=== PATIENT | female | born 1965 | race Caucasian/White ===

== ENCOUNTER 2021-12-24 06:12 | Inpatient (IN) ==
--- NOTE | 2021-12-10 13:25 | PAT Medication Instructions ---
Medication Instructions Date of Service December 10, 2021 Home Medications Tumeric Root 1,000 mg PO QAM alirocumab 150 mg/mL subcutaneous pen injector (Praluent Pen) 150 mg subcut UD gabapentin 800 mg tablet (Neurontin) 800 mg PO BID glipizide 10 mg tablet 10 mg PO QAM ketorolac 10 mg tablet 10 mg PO BID PRN Pain melatonin 12 mg tablet 25 mg PO HS PRN Sleep meloxicam 15 mg tablet 15 mg PO QAM metformin 1,000 mg tablet 1,000 mg PO BID tizanidine 4 mg tablet 4 mg PO TID PRN Muscle Spasm ASK your surgeon for instructions meloxicam 15 mg tablet 15 mg PO QAM ketorolac 10 mg tablet 10 mg PO BID PRN Pain ASK your prescriber and surgeon alirocumab 150 mg/mL subcutaneous pen injector (Praluent Pen) 150 mg subcut UD STOP taking 2 weeks before surgery (or as soon as possible if surgery is within 2 weeks) Tumeric Root 1,000 mg PO QAM DO NOT take the morning of surgery glipizide 10 mg tablet 10 mg PO QAM metformin 1,000 mg tablet 1,000 mg PO BID tizanidine 4 mg tablet 4 mg PO TID PRN Muscle Spasm Take morning of surgery With a small sip of water, OTHERWISE NOTHING TO EAT OR DRINK AFTER MIDNIGHT: gabapentin 800 mg tablet (Neurontin) 800 mg PO BID Take evening before surgery gabapentin 800 mg tablet (Neurontin) 800 mg PO BID melatonin 12 mg tablet 25 mg PO HS PRN Sleep (if needed) metformin 1,000 mg tablet 1,000 mg PO BID tizanidine 4 mg tablet 4 mg PO TID PRN Muscle Spasm (if needed) Other Notes If you have any questions please call us at [phone] or [phone] or [phone] or [phone]
--- NOTE | 2021-12-11 15:41 | Anesthesiology Consultation ---
Date of Service December 11, 2021 Assessment & Plan (1) Encounter for pre-operative examination: - Possible difficult intubation: Based on anatomy/decreased cervical extension/hx jaw atrophy r/t TMJ per pt. Received oral & maxillofacial radiologist note (02/16/2017): "Airwaynasal septal deviation was noted.. The space posterior to the tongue and soft palate was reduced (approximately 29 mm).. This space is small and should be considered a high risk factor for obstructive sleep apnea.. When the mandible was in "closed" position the condyles were positioned slightly anterior to the center in their respective fossa. The posterior articular spaces were augmented and the superior articular spaces were reduced.. Suggestive evidence of bilateral molar class II relationships were observed.. TMJs.. 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 The presence of these changes increases the probability of displaced discs for the TMJs. Reduction of condylar size maybe associated with changes in occlusion, asymmetries and mandibular posture which may predispose to TMJ dysfunction." Attempts to obtain most recent intubations (lumbar/cervical fusion records from 2006) unsuccessful. Case reviewed with Dr. Paulino. Nothing further preoperatively from his p erspective. Patient possible difficult intubation. - COVID screening: Per assessment on 12/11: No known COVID-19 positive contacts or current COVID-19 related symptoms. Travel screen negative. Surgeon arranging preop COVID testing. Awaiting results. - Check test, BSG AM DOS Chart Review Chart Review: Acceptable Risk for Surgery and Patient seen in Pre Admission Testing Teaching & Discussion Pre-Anesthesia Teaching/Discussion Notes: Instructed NPO after midnight before surgery,except medications with 15 cc of water. Medication instructions provided according to the PAT guidelines. History Surgery Operation Date: 12/24/21 07:45 Proposed Procedures p C4-C6 Anterior Cervical Discectomy Fusion, Spinal Cord Monitoring - Damian Mak DO Height/Weight Height: 5 ft 4 in Weight: 80.3 kg Allergies Allergy/AdvReac Type Severity Reaction Status Date / Time exenatide [From Byetta] Allergy Severe Anaphylaxis Verified 12/10/21 09:46 Sulfa (Sulfonamide Allergy Severe Hives Verified 12/10/21 09:46 Antibiotics) latex Allergy Intermediate Rash Verified 12/10/21 10:21 nickel Allergy Unknown Rash Verified 12/10/21 10:21 artificial sweetners AdvReac Unknown Nausea Uncoded 12/10/21 09:46 Medications Home Medications Medication Instructions Recorded Confirmed Last Taken Tumeric Root 1,000 mg PO QAM 12/10/21 12/10/21 Unknown alirocumab 150 mg/mL subcutaneous 150 mg subcut UD 12/10/21 12/10/21 Unknown pen injector (Praluent Pen) gabapentin 800 mg tablet 800 mg PO BID 12/10/21 12/10/21 Unknown (Neurontin) glipizide 10 mg tablet 10 mg PO QAM 12/10/21 12/10/21 Unknown ketorolac 10 mg tablet 10 mg PO BID PRN Pain 12/10/21 12/10/21 Unknown melatonin 12 mg tablet 25 mg PO HS PRN Sleep 12/10/21 12/10/21 Unknown meloxicam 15 mg tablet 15 mg PO QAM 12/10/21 12/10/21 Unknown metformin 1,000 mg tablet 1,000 mg PO BID 12/10/21 12/10/21 Unknown tizanidine 4 mg tablet 4 mg PO TID PRN Muscle Spasm 12/10/21 12/10/21 Unknown Past Medical History Medical History Diabetes High triglycerides Jaw atrophy Left side "deterioration" [place] r/t TMJ complications Sleep apnea CPAP (Compliant) Exercise / Class Metabolic Activity II 4-5 Yardwork/Stairs/Walk up hill (one FS (no CP, no SOB)) Past Surgical History Surgical History H/O colonoscopy H/O esophagogastroduodenoscopy "Narrow esophagus" Hx of prior ablation treatment uterine ablation S/P carpal tunnel release b/l S/P cervical spinal fusion C6-C7 (2006) S/P section S/P knee surgery lateral release S/P lumbar fusion L4-5 (2006) S/P right oophorectomy S/P trigger finger release 1st finger right hand Past Anesthesia History No Hx of Anesthesia Complications and No Family Hx of Anesthesia Complications History of PONV No Hx of PONV and No Hx of Motion Sickness Social History tobacco type: cigarettes Smoking cigarettes per day: 20 cigs/day Do You Dip or Chew Tobacco: No Hx Alcohol Use: No Hx Substance Use: No substance use type: does not use Review of Systems Patient denies chest pain, shortness of breath, dyspnea on exertion, fever, chills, cough, wheezing, palpitations. Physical Exam Vital Signs VITALS BP 111/73 P 76 TEMP 98.6 SP02 95%RA RESP 16 PHYSICAL Significantly decreased cervical extension range of motion. Full TMJ range of motion. TMD 3 finger breaths Mallampati Score 4 (small oral opening) Dentition: intact Lungs: clear throughout to auscultation Cardiac: regular rate and rhythm, I/ systolic murmur Spine: normal Carotid arteries: negative bruit Extremities: no edema Lab Results Anesthesia Preop Results Results Anesthesia Widget: WBC 12.36 K/ul (4.8-10.8) H 12/11/21 Hgb 14.6 g/dl (12.0-16.0) 12/11/21 Hct 43.6 % (34.1-44.9) 12/11/21 Plt 237 K/uL (130-400) 12/11/21 Na 141 mmol/L (136-145) 12/11/21 K 4.1 mmol/L (3.5-5.1) 12/11/21 Cl 106 mmol/L (98-107) 12/11/21 CO2 28 mmol/L (21-32) 12/11/21 BUN 16 mg/dl (6-23) 12/11/21 Creat 0.88 mg/dl (0.6-1.2) 12/11/21 Glucose Level 105 mg/dl (70-99(Fasting)) H 12/11/21 PT 10.3 Seconds (9.0-12.0) 12/11/21 PTT 26.4 Seconds (21.0-31.0) 12/11/21 INR 1.0 (0.9-1.1) 12/11/21 Urine Color Yellow 12/11/21 Urine Appearance Clear (Clear) 12/11/21 Urine pH 5.5 (4.5-7.5) 12/11/21 Urine Specific [place] 1.035 (1.000-1.030) H 12/11/21 Urine Protein Negative (Negative) 12/11/21 Urine Glucose (UA) 3+ (Negative) H 12/11/21 Urine Ketones Trace (Negative) H 12/11/21 Urine Blood Negative (Negative) 12/11/21 Urine Nitrite Negative (Negative) 12/11/21 Urine Bilirubin Negative (Negative) 12/11/21 Urine Urobilinogen Negative (Negative) 12/11/21 Urine Leukocyte Esterase Negative (Negative) 12/11/21 Blood Type O Positive 12/11/21 Antibody Screen NEGATIVE 12/11/21 Testing Laboratory Results Elevated WBC > will forward preop testing to PCP for continuity of care* 11/03/21 HGBA1C 6.5% Electrocardiogram Date: 12/11/21 Findings: + NSR @ (64) Chest X-Ray Date: 12/11/21 FINDINGS: Frontal and lateral radiographs of the chest demonstrate the cardiomediastinal silhouette to be within normal limits. The lungs are clear of alveolar opacities. There is no evidence for effusion bilaterally. There is no evidence for vascular congestion. There is no acute osseous pathology. IMPRESSION: No acute cardiopulmonary disease.
[~2021-12-24 06:12] MED LIST: ACETAMINOPHEN 500 MG TAB PO SCH; CeleBREX 200 MG CAP PO SCH; GABAPENTIN 600 MG DOSE PO SCH; LR 15ML/HR IV SCH; ceFAZolin 2000MG 2,000 MG/15 ML SYR IV SCH
[2021-12-24] MEDS ORDERED: PROPOFOL IV EMULSION 10 MG/ML 20 ML VIAL IV ONE ×2 (07:20→08:43)
[2021-12-24] MEDS ORDERED: ceFAZolin 330 MG/ML 1 GM VIAL ONE (07:21)
[2021-12-24] MEDS ORDERED: LIDOCAINE 2% MPF LOCAL 5 ML VIAL INFIL ONE ×2 (07:22→09:13)
[2021-12-24] MEDS ORDERED: fentaNYL citrate 100 MCG/2 ML VIAL ONE (07:23)
[2021-12-24] MEDS ORDERED: MIDAZOLAM HCL 1 MG/ML 2ML VIAL ONE (07:23)
[2021-12-24] MEDS ORDERED: SUCCINYLCHOLINE CHLORIDE 20 MG/ML 10 ML VIAL IV ONE (07:24)
[2021-12-24] MEDS ORDERED: ROCURONIUM BROMIDE 10 MG/ML 5 ML VIAL IV ONE ×6 (07:24→08:37)
[2021-12-24] MEDS ORDERED: ONDANSETRON INJ 2 MG/ML 2 ML VIAL ONE (07:25)
[2021-12-24] MEDS ORDERED: ARTIFICIAL TEARS OP OINT 3.5 GM TUBE ONE (07:33)
[2021-12-24 07:37] LABS: Pregnancy Test, Serum Negative (Negative)
--- NOTE | 2021-12-24 07:39 | History & Physical Bridge Note ---
Date of Service December 24, 2021 History & Physical Bridge Note I have examined the patient, reviewed the History & Physical and in the interval since the performance of the History & Physical I have noted the following changes of clinical significance: no changes noted
--- NOTE | 2021-12-24 07:41 | History & Physical Report ---
Date of Service December 24, 2021 Assessment & Plan (1) Cervical stenosis of spinal canal: Plan: C4-C6 anterior cervical discectomy and fusion History of Present Illness Chief Complaint: Neck and arm pain Primary Care Provider: Meghann Mcbride MD This is a 56-year-old female presents with chronic persistent neck and arm pain after failing course of nonoperative care she is here for surgical invention. Allergies Allergy/AdvReac Type Severity Reaction Status Date / Time exenatide [From Byetta] Allergy Severe Anaphylaxis Verified 12/24/21 06:44 Sulfa (Sulfonamide Allergy Severe Hives Verified 12/24/21 06:44 Antibiotics) latex Allergy Intermediate Rash Verified 12/24/21 06:44 nickel Allergy Unknown Rash Verified 12/24/21 06:44 artificial sweetners AdvReac Unknown Nausea Uncoded 12/24/21 06:44 Home Medications Medication Instructions Recorded Confirmed Type Tumeric Root 1,000 mg PO QAM 12/10/21 12/24/21 History alirocumab 150 mg/mL subcutaneous 150 mg subcut UD 12/10/21 12/24/21 History pen injector (Praluent Pen) gabapentin 800 mg tablet 800 mg PO BID 12/10/21 12/24/21 History (Neurontin) glipizide 10 mg tablet 10 mg PO QAM 12/10/21 12/24/21 History ketorolac 10 mg tablet 10 mg PO BID PRN Pain 12/10/21 12/24/21 History melatonin 12 mg tablet 25 mg PO HS PRN Sleep 12/10/21 12/24/21 History meloxicam 15 mg tablet 15 mg PO QAM 12/10/21 12/24/21 History metformin 1,000 mg tablet 1,000 mg PO BID 12/10/21 12/24/21 History tizanidine 4 mg tablet 4 mg PO TID PRN Muscle Spasm 12/10/21 12/24/21 History Past Med/Surg History Medical History Diabetes High triglycerides Jaw atrophy Left side "deterioration" [place] r/t TMJ complications Sleep apnea CPAP (Compliant) Surgical History H/O colonoscopy H/O esophagogastroduodenoscopy "Narrow esophagus" Hx of prior ablation treatment uterine ablation S/P carpal tunnel release b/l S/P cervical spinal fusion C6-C7 (2006) S/P section S/P knee surgery lateral release S/P lumbar fusion L4-5 (2006) S/P right oophorectomy S/P trigger finger release 1st finger right hand Social History Smoking Status: Never smoker Cigarettes Per Day: 20 cigs/day; Second Hand Exposure: No; Do You Dip or Chew Tobacco: No; Tobacco Cessation Education Requested by Patient: No Hx Alcohol Use: No Hx Substance Use: No Preferred Language: Peruvian Communication Ability: Effective Articulation Officer Required: No Beliefs That Will Affect Care: None Current Living Situation: Significant Other Other Information That Helps Us Care for You: No Feels Safe at Home: Yes Safety Concerns: Feels Safe At This Time Assistive Devices: CPAP and Glasses Physical Exam Physical Exam: Patient is alert and oriented Heart regular rhythm Lungs clear Results & Data Results & Data ([facility]) Vital Signs (Past 12 Hours) Vital Signs Temp Pulse Resp BP Pulse Ox O2 Del Method 12/24/21 06:55 36.4 C L 72 18 128/83 96 Room Air
[2021-12-24] MEDS ORDERED: PROMETHAZINE HCL 12.5 MG in SODIUM CHLORIDE 0.9% 50 ML IV PRN ×2 (07:42→12:12)
[2021-12-24] MEDS ORDERED: ATROPINE SULFATE 0.1 MG/ML 10ML SYR IV PRN (07:42)
[2021-12-24] MEDS ORDERED: ePHEDrine sulfate 50 MG/ML AMP IV PRN (07:42)
[2021-12-24] MEDS ORDERED: ONDANSETRON INJ 2 MG/ML 2 ML VIAL IV PRN ×2 (07:42→12:12)
[2021-12-24] MEDS ORDERED: HYDROmorphone INJ 2 MG/ML SYR/VIAL ONE (08:45)
[2021-12-24] MEDS ORDERED: GLYCOPYRROLATE 0.2 MG/ML VIAL ONE ×2 (09:00)
[2021-12-24] MEDS ORDERED: FLOSEAL HEMOSTATIC MATRIX 10ML TOP ONE (09:03)
--- NOTE | 2021-12-24 09:13 | Operative Report ---
Post Operative Report Pre & Post Diagnosis Operation Date: 12/24/21 07:45 Pre-Op Diagnosis: Spinal stenosis with radiculopathy Post-Op Diagnosis: Same I identified the patient and participated in the time-out.: Yes Procedure Operation Date: 12/24/21 07:45 Actual Procedures #1 anterior cervical discectomy with bilateral foraminotomies C4-C5. #2 anterior cervical arthrodesis C4-C5. #3 placement of 8 mm coalition cage filled with I factor C4-C5. Surgeon Damian Mak, Java Software Developer Krystina Jc Estimated Blood Loss 10 Findings Consistent with Post-Op Diagnosis Specimens None Indications This is a 56-year-old female who presents with above-mentioned diagnosis after failed course of nonoperative care she is here for surgical invention. Description of Procedure Patient was met with identified informed consent obtained. Patient was then taken to the operative suite underwent ablation placed in supine position the [place] table at [place] head animal keeper. All bony prominences well-padded eyes inspected to ensure no external pressure placed upon them. This point the anterior cervical spine was prepped and draped in the normal sterile fashion. With the assistance of fluoroscopy identify the C5 vertebral body and a transverse incision was placed along the right anterior aspect of the cervical spine overlying this region. Blunt dissection with the assistance of bipolar electrocautery was then performed down to and exposing the anterior cervical spine at C4-5 C5-C6. Then performed a complete discectomy of C4-C5 out to the uncovertebral joints bilaterally. [place] distraction pins were utilized to assist in visualization. I then removed all posterior annular fibers longitudinal ligament performed bilateral foraminotomies. Endplates were then burred to subcortically bone and an 8 mm coalition cage filled with I factor tapped in position and screwed into place with fluoroscopic assistance. I then explored the C5-C6 disc base. I appreciated dramatic bony overgrowth and a solid level. It is gone on to autofusion most likely from the previous C6-C7 surgery. Subsequently I chose not to address this level surgically. The incision was then copiously irrigated explored to ensure no damage to surrounding structures remaining bleeding. 10 round JUANCARLOS drain inserted. The incision was then closed with 2 Vicryl in a fashion of 4 Monocryl for final skin closure. Steri-Strip sterile dressings placed. Patient waken taken PACU stable condition. Please note spinal cord monitoring was utilized at the procedure no changes noted. Lastly Krystina Hosea was present out the entire procedure involved the patient positioning complex portions of the surgery and final skin closure. I attest to the content of the Intraoperative Record and any orders documented therein. Any exceptions are noted below.
[2021-12-24] MEDS: fentaNYL citrate 100 MCG/2 ML VIAL IV PRN ×2 (10:22→11:05)
--- NOTE | 2021-12-24 11:48 | Fluoroscopy Report ---
FL cervical 2-3V CLINICAL HISTORY: ACDF C4-C6 TECHNIQUE: 2 views were obtained with the C-arm in the OR with the above procedure. Total fluoroscopy time was 1.8 seconds. Total skin dose was 2.55 mGy. Comparison: None available at the time of this dictation. FINDINGS/IMPRESSION: Intraoperative images were obtained of ACDF of C4-C5. Please correlate with intraoperative fluoroscopy and operative report. ACT 112: Negative or not required by law. Electronically signed by: Alhaji Floyd M.D. 12/24/2021 11:46 AM
[2021-12-24] MEDS: HYDROmorphone INJ 2 MG/ML SYR/VIAL IV PRN ×2 (11:51→13:07)
[2021-12-24] MEDS ORDERED: ACETAMINOPHEN 1,000 MG/100 ML VIAL IV PRN (12:12)
[2021-12-24] MEDS ORDERED: LORazepam 0.5 MG TAB PO PRN (12:12)
[2021-12-24] MEDS ORDERED: NALOXONE HCL 0.4 MG/1 ML VIAL/CARP IV PRN (12:12)
[2021-12-24] MEDS ORDERED: ALUMINUM/MAGNESIUM SUSP 30 ML UDC PO PRN (12:12)
[2021-12-24] MEDS ORDERED: ONDANSETRON 4 MG OD TAB PO PRN (12:12)
[2021-12-24] MEDS ORDERED: LORazepam 0.5 MG in SYRINGE 0.25 ML IV PRN (12:12)
[2021-12-24] MEDS ORDERED: dexAMETHasone 8 MG in SYRINGE 0 ML IV PRN (12:12)
[2021-12-24] MEDS ORDERED: hydrOXYzine HCl 25 MG TAB PO PRN (12:12)
[2021-12-24] MEDS ORDERED: bisacodyL 10 MG SUPP PR PRN (12:12)
[2021-12-24] MEDS ORDERED: SOD PHOSPHATE/SOD BIPHOSPHATE ENEMA 132 ML BTL PR PRN (12:12)
[2021-12-24] MEDS ORDERED: FAMOTIDINE 20 MG TAB PO PRN (12:12)
[2021-12-24] MEDS ORDERED: METOCLOPRAMIDE HCL INJ 5 MG/ML 2 ML VIAL IV PRN (12:12)
[2021-12-24] MEDS ORDERED: RACEPINEPHRINE 2.25% NEBU SOLN 0.5 ML VIAL INH PRN (12:12)
[2021-12-24] MEDS ORDERED: MAGNESIUM HYDROXIDE SUSP 30 ML UDC PO PRN (12:12)
[2021-12-24] MEDS ORDERED: HYDROmorphone INJ 0.5 MG/0.5 ML SYR IV PRN (12:12)
[2021-12-24] MEDS ORDERED: tiZANidine HCL 4 MG TABLET PO PRN (12:12)
--- NOTE | 2021-12-24 12:15 | Anesthesiology Progress Note ---
Date of Service December 24, 2021 Anesthesia Post Procedure Vital Signs Vital Signs: Temp Pulse Pulse Resp BP Pulse Ox O2 Del Method 12/24/21 12:05 55 L 12 116/60 96 Oxymask 12/24/21 11:55 66 18 135/83 97 Room Air 12/24/21 11:45 58 L 15 130/67 96 Room Air 12/24/21 11:35 60 12 138/68 98 Oxymask 12/24/21 11:25 55 L 16 127/76 95 Oxymask 12/24/21 11:15 58 L 11 L 137/78 99 Oxymask 12/24/21 11:00 62 14 122/77 95 Room Air 12/24/21 11:05 53 L 12 145/86 H 99 Oxymask 12/24/21 10:50 60 12 132/65 95 Room Air 12/24/21 10:40 36.2 C L 54 L 14 130/70 99 Oxymask 12/24/21 10:30 55 L 13 127/72 100 Oxymask 12/24/21 10:20 56 L 13 142/77 H 100 Oxymask 12/24/21 10:10 56 L 17 138/77 100 Oxymask 12/24/21 09:50 58 L 17 133/83 100 Oxymask 12/24/21 10:00 62 18 139/75 100 Oxymask 12/24/21 09:40 63 15 133/75 100 Oxymask 12/24/21 09:31 36.2 C L 64 17 134/78 100 Oxymask 12/24/21 06:55 36.4 C L 72 18 128/83 96 Room Air O2 Flow Rate 12/24/21 12:05 2 12/24/21 11:55 12/24/21 11:45 12/24/21 11:35 2 12/24/21 11:25 2 12/24/21 11:15 2 12/24/21 11:00 12/24/21 11:05 2 12/24/21 10:50 12/24/21 10:40 4 12/24/21 10:30 4 12/24/21 10:20 4 12/24/21 10:10 4 12/24/21 09:50 6 12/24/21 10:00 4 12/24/21 09:40 6 12/24/21 09:31 6 12/24/21 06:55 Pain Intensity Neck: Pain Intensity: 4 Transfer of Care Handoff Completed per policy Notes Mental Status: alert / awake / arousable and participated in evaluation Patient Amnestic to Procedure: Yes Nausea / Vomiting: adequately controlled Pain: adequately controlled Airway Patency, RR, SpO2: stable & adequate BP & HR: stable & adequate Hydration State: stable & adequate Anesthetic Complications: no major complications apparent
[2021-12-24] MEDS ORDERED: MELATONIN 3 MG TAB PO PRN (13:10)
[2021-12-24] MEDS: SODIUM CHLORIDE 0.9% 1000ML 1,000 ML IV SCH ×2 (13:14→23:39)
[2021-12-24] MEDS ORDERED: ACETAMINOPHEN 500 MG TAB PO PRN (15:15)
[2021-12-24] MEDS: ceFAZolin 2000MG 2,000 MG/15 ML SYR IV SCH (15:20)
[2021-12-24] MEDS: oxyCODONE HCL IR 5 MG TAB (IMMEDIATE RELEASE) PO PRN (18:21)
[2021-12-24] MEDS ORDERED: FLUCONAZOLE 50 MG TAB PO ONE (19:00)
[2021-12-24] MEDS: HYDROmorphone INJ 1 MG/ML SYRINGE IV PRN (19:47)
[2021-12-24] MEDS ORDERED: GLUCOSE 40% GEL 15 GM TUBE PO PRN (20:15)
[2021-12-24] MEDS ORDERED: DEXTROSE 50% 50 ML SYRINGE IV PRN (20:15)
[2021-12-24] MEDS ORDERED: CARBOHYDRATES FOR HYPOGLYCEMIA PO PRN (20:15)
[2021-12-24] MEDS ORDERED: GLUCOSE 10 TAB/TUBE PO PRN (20:15)
[2021-12-24] MEDS ORDERED: GLUCAGON FOR INJ 1 MG VIAL SQ PRN (20:15)
--- NOTE | 2021-12-24 20:19 | Consultation ---
Date of Consultation December 24, 2021 Assessment & Plan (1) H/O cervical spine surgery: Post op day# 0 S/P ACDF by Dr Aubree PHELPS#10ml -pain management per ortho -wound management per ortho -PT/OT as appropriate -DVT prophylaxis per ortho -incentive spirometry -monitor H&H for acute blood loss anemia; pre-op: Hgb: 14.6 (2) Diabetes mellitus, type II: Unknown A1c -Hold home meds -Basal bolus insulin per protocol. Anticipate hyperglycemia with dexamethasone. Glycemic pharmacy consult (3) Sleep apnea: -CPAP HS (4) Tobacco use: -Smoking cessation encouraged -Nicotine patch DVT Prophylaxis -SCDs Disposition per primary team Follows with Dr Meghann Mcbride for routine care Pt was seen and care coordinated with Dr Dunaway. See addendum Thank you for this consultation. We will follow the patient with you during their hospital stay. You can reach a member of the [facility] 07/12 via [employer] Supervising Physician Co-Signing Physician Notes Attending Addendum: care coordinated with SHIKHA Groves please refer to her notes for full details, I agree with her notes patient seen and examined, records reviewed by myself as well on exam, patient seen sitting up in bed, comfortable, not in distress pain over surgical site well controlled now no chest pain, dyspnea, palpitations, dizziness no focal neuro symptoms no dysphagia no other symptoms VS noted and reviewed General- oriented x 3, not in distress, speaks in sentences with no effort or accessory muscle use Head- atraumatic Eyes- PERRL, EOMI, anicteric ENT- oropharynx clear Neck- supple, no JVD, no adenopathy surgical dressing in place over anterior aspect, drain in place, scant serosanguinous drainage Lungs- clear to auscultation bilaterally, no rales/wheezes Heart- normal rate, regular rhythm; no murmur, no gallop, no rub appreciated Abdomen- normal bowel sounds, nondistended, soft, nontender, no masses or hepatosplenomegaly Extremities- no pretibial edema, no calf tenderness; peripheral pulses intact Neuro- alert, oriented x 3; CN 2-12 grossly intact; motor 5/5 bilaterally;sensation 100% on all extremities; no other gross focal neurologic deficits Skin- warm & dry ASSESSMENT AND PLAN s/p CERVICAL SPINE SURGERY stable overall pain regimen, DVT prophyalaxis per Ortho DM 2 hold Metformin and Glipizide on Decadron 6mg IV, ISS, Pharmacy Glycemic control consult will be requested other diagnoses and plan of care as per SHIKHA Groves notes Clifton Dunaway MD History of Present Illness Requesting Physician: Dr Mak Reason for Consultation: Post op medical management Attending Physician: Damian Mak, DO History of Present Illness Patient is 56 y/o F with PMH DM II, MUNIRA on CPAP, tobacco use seen in medical consultation s/p ACDF today by Dr Mak. Post op reports some neck pain otherwise denies complaint. Denies fever/chills, diaphoresis, N/V/D/C, KIM, dizziness, syncope, vision changes, CP, SOB, or thopnea, palpitations, cough, sore throat, choking, otalgia, rhinorrhea, abdominal pain, paresthesias, weakness, extremity weakness, extremity edema, rashes, urinary symptoms. Allergies Allergy/AdvReac Type Severity Reaction Status Date / Time exenatide [From [facility]] Allergy Severe Anaphylaxis Verified 12/24/21 06:44 Sulfa (Sulfonamide Allergy Severe Hives Verified 12/24/21 06:44 Antibiotics) latex Allergy Intermediate Rash Verified 12/24/21 06:44 nickel Allergy Unknown Rash Verified 12/24/21 06:44 artificial sweetners AdvReac Unknown Nausea Uncoded 12/24/21 06:44 Home Medications Medication Instructions Recorded Confirmed Type Tumeric Root 1,000 mg PO QAM 12/10/21 12/24/21 History alirocumab 150 mg/mL subcutaneous 150 mg subcut UD 12/10/21 12/24/21 History pen injector (Praluent Pen) gabapentin 800 mg tablet 800 mg PO BID 12/10/21 12/24/21 History (Neurontin) glipizide 10 mg tablet 10 mg PO QAM 12/10/21 12/24/21 History ketorolac 10 mg tablet 10 mg PO BID PRN Pain 12/10/21 12/24/21 History melatonin 12 mg tablet 25 mg PO HS PRN Sleep 12/10/21 12/24/21 History meloxicam 15 mg tablet 15 mg PO QAM 12/10/21 12/24/21 History metformin 1,000 mg tablet 1,000 mg PO BID 12/10/21 12/24/21 History tizanidine 4 mg tablet 4 mg PO TID PRN Muscle Spasm 12/10/21 12/24/21 History Patient History Medical History (Updated 12/24/21 @ 21:21 by Arielle Navas PA-C) Diabetes High triglycerides 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 Sleep apnea CPAP (Compliant) Surgical History (Updated 12/24/21 @ 21:21 by Arielle Navas PA-C) H/O colonoscopy H/O esophagogastroduodenoscopy "Narrow esophagus" Hx of prior ablation treatment uterine ablation S/P carpal tunnel release b/l S/P cervical spinal fusion C6-C7 (2006) S/P section S/P knee surgery lateral release S/P lumbar fusion L4-5 (2006) S/P right oophorectomy S/P trigger finger release 1st finger right hand Family History Other No history of adverse effect of anesthesia Social History Smoking Status: Current every day smoker Cigarettes Per Day: 20 cigs/day; Second Hand Exposure: No; Do You Dip or Chew Tobacco: No; Tobacco Cessation Education Requested by Patient: No Hx Alcohol Use: No Hx Substance Use: No Preferred Language: Citizen Of [place] Communication Ability: Effective School Janitor Required: No Beliefs That Will Affect Care: None Current Living Situation: Significant Other Other Information That Helps Us Care for You: No Feels Safe at Home: Yes Safety Concerns: Feels Safe At This Time Assistive Devices: CPAP and Glasses Review of Systems Review of Systems: All systems reviewed & are unremarkable except as noted in HPI & below Physical Exam Physical Exam: pe per Dr Dunaway Results & Data ([facility]) Vital Signs (Past 12 Hours) Vital Signs Temp Pulse Pulse Resp BP Pulse Ox O2 Del Method 12/24/21 20:01 71 16 93 Room Air 12/24/21 18:35 36.2 C L 67 18 184/86 H 97 Room Air 12/24/21 15:12 86 15 94 Room Air 12/24/21 16:40 37 C 65 15 154/77 H 93 Room Air 12/24/21 15:30 73 20 139/82 95 Room Air 12/24/21 14:45 71 14 124/73 95 Room Air 12/24/21 14:15 64 14 124/73 94 Room Air 12/24/21 13:45 65 15 125/75 94 Room Air 12/24/21 13:15 36.7 C 62 15 122/71 94 Room Air 12/24/21 13:00 71 15 121/81 96 Room Air 12/24/21 12:45 67 14 127/88 97 Room Air 12/24/21 12:30 74 16 127/83 98 Room Air 12/24/21 12:15 36.3 C L 55 L 14 127/73 96 Room Air 12/24/21 12:05 55 L 12 116/60 96 Oxymask 12/24/21 11:55 66 18 135/83 97 Room Air 12/24/21 11:45 58 L 15 130/67 96 Room Air 12/24/21 11:35 60 12 138/68 98 Oxymask 12/24/21 11:25 55 L 16 127/76 95 Oxymask 12/24/21 11:15 58 L 11 L 137/78 99 Oxymask 12/24/21 11:00 62 14 122/77 95 Room Air 12/24/21 11:05 53 L 12 145/86 H 99 Oxymask 12/24/21 10:50 60 12 132/65 95 Room Air 12/24/21 10:40 36.2 C L 54 L 14 130/70 99 Oxymask 12/24/21 10:30 55 L 13 127/72 100 Oxymask 12/24/21 10:20 56 L 13 142/77 H 100 Oxymask 12/24/21 10:10 56 L 17 138/77 100 Oxymask 12/24/21 09:50 58 L 17 133/83 100 Oxymask 12/24/21 10:00 62 18 139/75 100 Oxymask 12/24/21 09:40 63 15 133/75 100 Oxymask 12/24/21 09:31 36.2 C L 64 17 134/78 100 Oxymask O2 Flow Rate FiO2 12/24/21 20:01 21 12/24/21 18:35 12/24/21 15:12 12/24/21 16:40 12/24/21 15:30 12/24/21 14:45 08/10/22 14:15 12/24/21 13:45 12/24/21 13:15 12/24/21 13:00 12/24/21 12:45 12/24/21 12:30 12/24/21 12:15 12/24/21 12:05 2 12/24/21 11:55 12/24/21 11:45 12/24/21 11:35 2 12/24/21 11:25 2 12/24/21 11:15 2 12/24/21 11:00 12/24/21 11:05 2 12/24/21 10:50 12/24/21 10:40 4 12/24/21 10:30 4 12/24/21 10:20 4 12/24/21 10:10 4 12/24/21 09:50 6 12/24/21 10:00 4 12/24/21 09:40 6 12/24/21 09:31 6
[2021-12-24] MEDS: diphenhydrAMINE Capsule 25 MG CAP PO PRN (20:32)
[2021-12-24] MEDS ORDERED: PHARMACY GLYCEMIC MGMT CONSULT PRN (20:53)
[2021-12-24] MEDS ORDERED: GABAPENTIN 800 MG TAB PO SCH (21:00)
[2021-12-24] MEDS: GABAPENTIN 400 MG CAP PO SCH (21:00)
[2021-12-24] MEDS ORDERED: DOCUSATE SODIUM/SENNA 50/8.6MG TAB PO SCH (21:00)
[2021-12-24] MEDS ORDERED: LANTUS PER UNIT CHARGE SQ SCH ×2 (21:00→21:30)
[2021-12-24] MEDS: INSULIN ASPART PER UNIT SC SCH (21:24)
[2021-12-25] MEDS: ceFAZolin 2000MG 2,000 MG/15 ML SYR IV SCH (00:03)
[2021-12-25] MEDS: oxyCODONE HCL IR 5 MG TAB (IMMEDIATE RELEASE) PO PRN (04:11)
[2021-12-25] MEDS: POLYETHYLENE (MIRALAX) 17 GM PACK PO SCH ×2 (05:34→13:51)
[2021-12-25] MEDS: traMADol HCL 50 MG TABLET PO PRN ×2 (06:05→14:12)
[2021-12-25 06:33] LABS: Hematocrit (blood only) 40.1 % (34.1-44.9); Hemoglobin 13.6 g/dl (12.0-16.0); Mean Corpuscular Hemoglobin 30.7 pg (25.0-34.0); Mean Corpuscular Hgb Conc 33.9 g/dL (32.0-36.0); Mean Corpuscular Volume 90.5 fL (80.0-100.0); Mean Platelet Volume 9.1 fL (9.4-12.3); Platelet Count 196 K/uL (130-400); RDW Coefficient of Variation 13.7 % (11.5-14.5); RDW Standard Deviation 45.1 fL (36.4-46.3); Red Blood Count 4.43 M/uL (3.93-5.22); White Blood Count 11.39 K/ul (4.8-10.8)
[2021-12-25 07:04] LABS: BUN Creatinine Ratio 15.7 (10-20); Calcium 9.4 mg/dl (8.5-10.1); Creatinine Clr Calc Pharmacy 78.9 ml/min; Est GFR (Non-African American) 79.4 ml/min; Potassium 4.2 mmol/L (3.5-5.1)
[2021-12-25] MEDS: HYDROmorphone INJ 1 MG/ML SYRINGE IV PRN (08:20)
--- NOTE | 2021-12-25 08:31 | Discharge Summary ---
Date of Service December 25, 2021 Admission HPI Per Admitting Provider This is a 56-year-old female presents with chronic persistent neck and arm pain after failing course of nonoperative care she is here for surgical invention. Principal Diagnosis Cervical radiculopathy Discharge Data Allergies Allergy/AdvReac Type Severity Reaction Status Date / Time exenatide [From [place]] Allergy Severe Anaphylaxis Verified 12/24/21 06:44 Sulfa (Sulfonamide Allergy Severe Hives Verified 12/24/21 06:44 Antibiotics) latex Allergy Intermediate Rash Verified 12/24/21 06:44 nickel Allergy Unknown Rash Verified 12/24/21 06:44 artificial sweetners AdvReac Unknown Nausea Uncoded 12/24/21 06:44 Consultations 12/24/21 18:46 Consult Hospitalist Routine Procedures Performed Operation Date: 12/24/21 07:45 Actual Procedures p C4-C6 Anterior Cervical Discectomy Fusion, Spinal Cord Monitoring(Not Applicable) - Damian Mak DO Ordered Studies 12/24/21 07:45 FL cervical 2-3V Routine Hospital Course (1) Cervical stenosis of spinal canal: Patient underwent anterior cervical discectomy fusion tolerated this well was taken to orthopedic for postoperative. Postop day 1 she was swallowing well no hoarseness. Ambulating well. Excellent strength testing. JUANCARLOS drain decreasing appropriately. Subsequent discharge home. Discharge orders instructions were on the chart for further review. Total Time Total Time Spent Total Time Spent (In Minutes): 20 minutes Discharge Plan Discharge Items Patient Disposition: Home - Self-Care Reason For Visit: Spinal Stenosis, Cervical Region Discharge Diagnosis: Cervical spinal stenosis with radiculopathy Activity: As commented below Non-emergency contact: Primary Care Provider Call non-emergency contact if: you have any medication questions Follow-up/Referrals: Meghann Mcbride MD [Primary Care Provider] - Diet: Regular Addtl Attending Provider Instructions: ACTIVITY RECOMMENDATIONS: SELF CARE INSTRUCTIONS AFTER CERVICAL FUSIONS 1. No smoking. Smoking drastically decreases the chance of a solid fusion. 2. No bending, lifting more than 5 pounds, or twisting (roll like a log when turning in bed). 3. You may shower 3 days after surgery. Thoroughly dry wound. Do not soak in the tub. 4. Cervical collar: Must be worn at all times including sleeping. You may remove the brace only to bath, eat and if you are sitting in a recliner. 5. Please walk as much as you can for exercise. Gradually increase the distance that you walk as your endurance increases. SPECIAL CARE INSTRUCTIONS: VERY IMPORTANT TO READ AND REVIEW A. Do not take any anti-inflammatory medications (i.e. Indocin, Advil, Aspirin, Naprosyn, Aleve, Motrin, etc.) as these may inhibit the chance of a solid fusion. Tylenol is okay to take. B. Your surgical incision has been closed with a cosmetic suture under the skin that will dissolve in about 6 weeks. In 14 days, you can use a pair of clean scissors and cut the suture that is left outside of the skin at the ends of your incision. C. Complications are uncommon, but please contact us if you have any signs or symptoms of: 1. wound infection (fever higher than 102.5 degrees F, redness, separation of wound, drainage, or increasing pain from the incision) 2. blood clots in legs (pain, swelling, redness and warmth in legs) 3. urinary tract infection (fever higher than 102.5 degrees, burning upon urination or increased frequency of urination) 4. nerve problems (inability to walk on your toes or heels, numbness, loss of bowel or bladder control) 5. any other symptoms that concern you. D. Please call the office at if you have any concerns or questions about your operation or recovery. MANAGING PAIN AFTER SPINAL SURGERY 1. Narcotic medication is intended for short-term use and will be provided for surgical pain. Surgical pain usually lasts for a period of 4-6 weeks. Narcotic medication includes Percocet, Vicodin, Darvocet, Tylenol #3 or Lortab. 2. Longer-term pain is more appropriately treated with non-narcotic medication such as Tylenol ES. 3. Muscle spasm is not appropriately treated with narcotics. Muscle relaxers such as Soma, Flexeril or Skelaxin can be used along with Tylenol ES. 4. Remember that we all live with some "aches and pains". This is not unusual or uncommon after an injury or as we get older. 5. We will provide appropriate medication within the normal guidelines of their prescribed use. We will also be very cautious and aware of potential abuse and extended duration of patients' medication needs. 6. Please allow 2-3 days to process refills. Prescriptions will not be mailed but must be picked up at the office. FOLLOW UP VISIT: Keep your scheduled follow-up appointment. Any questions, please call the office at . Pending Studies at Discharge: No Stand-Alone Forms: [facility], Smoking Cessation Medications and DC Order Prescriptions: New oxycodone 5 mg tablet 5 mg PO Q6H PRN (Reason: pain, severe) Qty: 20 0RF tramadol 50 mg tablet 50 mg PO Q6H PRN (Reason: pain, moderate) Qty: 20 0RF Continued tizanidine 4 mg Tablet 4 mg PO TID PRN (Reason: Muscle Spasm) meloxicam 15 mg Tablet 15 mg PO QAM glipizide 10 mg Tablet 10 mg PO QAM ketorolac 10 mg Tablet 10 mg PO BID PRN (Reason: Pain) gabapentin [Neurontin] 800 mg Tablet 800 mg PO BID metformin 1,000 mg Tablet 1,000 mg PO BID melatonin 12 mg Tablet 25 mg PO HS PRN (Reason: Sleep) Tumeric Root 1,000 mg PO QAM Praluent Pen 150 mg/mL Pen Injector 150 mg SUBCUT UD Rx Instructions: q 14 days Discharge Orders: Discharge Order (Routine); Ordered 12/25/21 Ordered By: Damian Mak Admission Data Admit Date/Time: 12/24/21 09:16 Attending Provider: Damian Mak Admit Provider: Damian Mak Primary Care Provider: Meghann Mcbride Other Providers: Edel Azevedo ; Mark Holly
[2021-12-25 08:38] LABS: Estimated Average Glucose 166 mg/dl; Hemoglobin A1C 7.4 % (4.5-5.6)
[2021-12-25] MEDS ORDERED: NICOTINE 21 MG/24 HR TDSY TD SCH (09:00)
[2021-12-25] MEDS ORDERED: glipiZIDE 5 MG TAB PO SCH (09:00)
[2021-12-25] MEDS ORDERED: dexAMETHasone 6 MG in SYRINGE 0 ML IV SCH (09:00)
[2021-12-25] MEDS ORDERED: LANTUS PER UNIT CHARGE SQ SCH ×3 (09:00→21:00)
[2021-12-25] MEDS: INSULIN ASPART PER UNIT SC SCH ×2 (09:02→13:50)
[2021-12-25] MEDS: GABAPENTIN 400 MG CAP PO SCH (09:04)
[2021-12-25] MEDS: diphenhydrAMINE Capsule 25 MG CAP PO PRN (09:28)
[2021-12-25] MEDS: SODIUM CHLORIDE 0.9% 1000ML 1,000 ML IV SCH (09:56)
--- NOTE | 2021-12-25 12:54 | Hospitalist Progress Note ---
Date of Service December 25, 2021 Assessment & Plan (1) H/O cervical spine surgery: Plan: Spinal stenosis with radiculopathy S/P anterior cervical discectomy with bilateral foraminotomies C4-C5, anterior cervical arthrodesis C4-C5, placement of 8 mm coalition cage filled with I factor C4-C5 Pain management, DVT Px as per ortho Continue PT OT when appropriate Continue wound care Continue incentive spirometry Needs follow-up with orthopedics upon discharge (2) Diabetes mellitus, type II: Plan: HbA1c 7.4 Hold home meds Continue Insulin per protocol while hospitalized Acute Urinary Retention Bladder scan as needed Monitor (3) Sleep apnea: Plan: CPAP HS (4) Tobacco use: Plan: Smoking cessation encouraged Continue Nicotine patch DVT Px As per primary team Thank you for this consultation. We will follow the patient with you during their hospital stay. You can [facility] via [employer] Admission and Anticipated Discharge Date Admission Date: December 24, 2021 Subjective Patient is seen and examined at bedside States having some soreness at surgical site Had urinary retention earlier today Denies any chest pain, shortness of breath, dizziness, nausea, abdominal pain Review of Systems Review of Systems: All systems reviewed & are unremarkable except as noted in Subjective Physical Exam Physical Exam: Physical Exam: Vitals signs as noted above General Appearance:Moderately built and nourished, no apparent distress Head: normocephalic, Atraumatic Neck: +Drain, Collar Eyes: normal inspection, EOMI Neck: supple, Trachea midline Respiratory/Chest: Normal breath sounds, CTA Cardiovascular: S1, S2, No murmur Abdomen/GI:Soft, Non tender, Bowel sounds present Extremities/Musculoskeletal:normal inspection, no edema Neurologic/Psych:AAOX3, grossly no focal neurological deficits Skin: normal color, warm Results & Data Results & Data ([facility]) Vital Signs (Past 12 Hours) Vital Signs Temp Pulse Pulse Resp BP BP Pulse Ox 12/25/21 11:30 68 18 95 12/25/21 08:37 86 16 98 12/25/21 10:02 36.8 C 59 L 16 136/75 91 12/25/21 06:17 36.6 C 53 L 18 129/77 95 12/25/21 05:36 36.8 C 61 16 120/74 95 12/25/21 04:34 61 14 92 12/25/21 03:10 36.6 C 75 16 129/72 97 12/25/21 01:18 36.9 C 69 16 124/81 93 O2 Del Method FiO2 12/25/21 11:30 Room Air 12/25/21 08:37 Room Air 12/25/21 10:02 Room Air 12/25/21 06:17 Room Air 12/25/21 05:36 Room Air 12/25/21 04:34 Room Air 21 12/25/21 03:10 CPAP 12/25/21 01:18 Room Air Laboratory Results Short CBC 12/25/21 Range/Units 06:14 WBC 11.39 H (4.8-10.8) K/ul Hgb 13.6 (12.0-16.0) g/dl Hct 40.1 (34.1-44.9) % Plt Count 196 (130-400) K/uL BMP 12/25/21 06:14 Sodium 140 Potassium 4.2 Chloride 105 Carbon Dioxide 28 BUN 13 Creatinine 0.83 Glucose 149 H Calcium 9.4
--- NOTE | 2021-12-25 13:12 | Pharmacy Report ---
Pharmacy Glycemic Short Note 2 - Date of Service December 25, 2021 - Glycemic Short BSG Results (Last 24 hours): 12/24/21 12/25/21 12/25/21 17:02 06:14 07:52 Glucose 149 H POC Glucose 179 H 152 H 12/25/21 12:07 Glucose POC Glucose 249 H OUTPATIENT ANTIDIABETIC REGIMEN: * Metformin 1000 mg PO BIDM * Glipizide 10 mg PO qAM HbA1c: 7.4% (12/25/21) ASSESSMENT: * WM is a 56 year old female POD #1 s/p C4-C6 discectomy fusion * No perioperative steroids given, but dexamethasone 6 mg IV daily ordered ongoing starting POD #1 * Will give Lantus with dexamethasone today * Lunch BSG of 249 mg/dL this morning, will tighten Novolog to weight-based stress of 3 and increase Lantus with tomorrow's dose of dexamethasone PLAN FOR INPATIENT GLYCEMIC CONTROL: * Hold outpatient oral diabetes medications * Basal insulin * Lantus 25 units SQ x 1 with dexamethasone this morning * Lantus 0-15 units SC HS (see EHR for details) * Lantus 30 units SC daily with dexamethasone starting tomorrow morning * Bolus insulin * NovoLog per scale ACHS or Q6hrs while NPO * Goal Range: Low 110 mg/dL - High 140 mg/dL * Correction Factor: 20 mg/dL/unit * Nutritional / Prandial insulin per carb ratio of 1 unit per 7 grams CHO consumed
[2021-12-25 15:02] LABS: Appearance Urine Clear (Clear); Bilirubin Urine Negative (Negative); Blood Urine Negative (Negative); Color Urine Yellow; Glucose Urine UA 2+ (Negative); Ketones Urine Negative (Negative); Leukocyte Esterase Urine Negative (Negative); Nitrite Urine Negative (Negative); Protein Urine Negative (Negative); Specific Gravity Urine 1.009 (1.000-1.030); Urobilinogen Urine Negative (Negative)
[2021-12-26] MEDS ORDERED: LANTUS PER UNIT CHARGE SQ SCH (09:00)
== END 2021-12-25 16:07 | disposition home or self-care (01) | DRG 473 ==
LOC: ASU 06:12 → PACUINP 09:16 → 3W 16:33
DX: Z98.1 Arthrodesis status; G47.33 Obstructive sleep apnea (adult) (pediatric); Z20.822 Contact with and (suspected) exposure to COVID-19; Z79.84 Long term (current) use of oral hypoglycemic drugs; M48.02 Spinal stenosis, cervical region; M54.12 Radiculopathy, cervical region; E11.9 Type 2 diabetes mellitus without complications; Z88.2 Allergy status to sulfonamides; F17.210 Nicotine dependence, cigarettes, uncomplicated; Z91.040 Latex allergy status